=== PATIENT | male | born 1965 | race Caucasian/White ===

== ENCOUNTER → 2023-06-18 13:15 | Outpatient (CLI) | payer OTHER, SELFPAY ==
--- NOTE | 2023-06-18 13:22 | DI.RAD.S_ITS ---
PROCEDURE: XR KNEE LT 3V INDICATIONS: HIP PAIN//ankle and knee pain TECHNIQUE: 3 views of the knee were acquired. COMPARISON: None. FINDINGS: Bones: Mild overall degenerative changes. No displaced fracture or dislocation. Patellar enthesopathy. Soft tissues: Possible trace joint effusion. IMPRESSION: Mild overall degenerative changes. Patellar enthesopathy. If there is high concern for further derangement, consider MRI evaluation. Dictated by: Simon Kuhn M.D. on 06/18/2023 at 16:53 Approved by: Simon Kuhn M.D. on 06/18/2023 at 16:55
--- NOTE | 2023-06-18 13:22 | DI.RAD.S_ITS ---
PROCEDURE: XR ANKLE LT 2V INDICATIONS: HIP PAIN//ankle and knee pain TECHNIQUE: 2 views of the ankle were acquired. COMPARISON: None. FINDINGS: Bones: Plantar calcaneal enthesopathy. Mild tibiotalar and midfoot degenerative changes. There is no displaced fracture or dislocation. Soft tissues: Soft is no suspicious calcifications. IMPRESSION: Mild degenerative changes. Plantar calcaneal enthesopathy. If there is high concern for further derangement, consider MRI evaluation. Dictated by: Simon Kuhn M.D. on 06/18/2023 at 16:53 Approved by: Simon Kuhn M.D. on 06/18/2023 at 16:53
--- NOTE | 2023-06-18 13:22 | DI.RAD.S_ITS ---
PROCEDURE: XR HIP W PEL IF DONE EDSON MIN 4V INDICATIONS: HIP PAIN//ankle and knee pain TECHNIQUE: AP pelvis with lateral view(s) of the both hip(s). COMPARISON: None. FINDINGS: Bones: Mild bilateral hip degenerative changes. No displaced fracture or dislocation. There also lumbosacral degenerative changes. Soft tissues: No suspicious calcifications. IMPRESSION: Mild bilateral hip arthrosis. If there is high concern for further derangement, consider MRI evaluation. Dictated by: Simon Kuhn M.D. on 06/18/2023 at 16:52 Approved by: Simon Kuhn M.D. on 06/18/2023 at 16:52
== END ==
PROVIDERS: Referring Provider Chiropractor; Visit Provider Chiropractor
DX: M16.0 Bilateral primary osteoarthritis of hip (principal); M77.32 Calcaneal spur, left foot; M76.9 Unspecified enthesopathy, lower limb, excluding foot
CPT/HCPCS: 73522; 73562; 73600